=== PATIENT | female | born 1975 | race Caucasian/White ===

== ENCOUNTER 2017-06-12 22:22 | Emergency (ER) | payer MEDICAID, OTHER ==
[~2017-06-12] VITALS: Ht 167.6 cm; Wt 109.0 kg
[2017-06-12 22:36] VITALS: Ht 167.6 cm; Wt 109.0 kg
--- NOTE | 2017-06-13 00:43 | ERD ---
ER Documentation Chief Complaint Date/Time DATE: 06/13/17 TIME: 00:43 Chief Complaint pain with urination today HPI This 42-year-old female presents to emergency department with complaint of dysuria and hematuria x 1 day denies any vaginal discharge, reports low bladder pain and back pain. Patient denies any injury, nausea vomiting fever chills. ROS All systems reviewed and are negative except as per history of present illness. Medications Home Meds Active Scripts Phenazopyridine Hcl* (Pyridium*) 200 Mg Tab, 200 MG PO TID Y for URINARY PAIN, # 6 TAB Prov:FARIHA,JONATAN 06/13/17 Nitrofurantoin Monohyd Macrocr* (Macrobid*) 100 Mg Capsr, 100 MG PO BID for 7 Days, CAP Prov:FARIHA,JONATAN 06/13/17 Allergies Allergies: Coded Allergies: No Known Allergy (Unverified , 06/12/17) PMhx/Soc History of Surgery: No Anesthesia Reaction: No Hx Neurological Disorder: No Hx Respiratory Disorders: Yes (asthma) Hx Cardiac Disorders: No Hx Psychiatric Problems: No Hx Miscellaneous Medical Probl: No Hx Alcohol Use: No Hx Substance Use: No Hx Tobacco Use: No Smoking Status: Never smoker Physical Exam Vitals Vital Signs Date Time Temp Pulse Resp B/P Pulse Ox O2 Delivery O2 Flow Rate FiO2 06/13/17 02:07 72 20 117/68 98 Room Air 06/12/17 23:06 89 20 142/89 100 Room Air 06/12/17 22:36 98.1 87 20 146/73 98 Physical Exam Const: Well-nourished well-appearing well-hydrated no acute distress Head: Eyes: ENT: Neck: Resp: Cardio: Abd: Soft, non tender, non distended. No CVA tenderness Skin: Back: Ext: Neur: Awake and alert Psych: Normal Mood and Affect Results 24 hrs Laboratory Tests Test 06/13/17 01:30 Bedside Urine pH (LAB) 5.0 Bedside Urine Protein (LAB) 2+ Bedside Urine Glucose (UA) Negative Bedside Urine Ketones (LAB) Negative Bedside Urine Blood 3+ Bedside Urine Nitrite (LAB) Negative Bedside Urine Leukocyte Esterase (L 2+ This is positive for leukocytosis, microscopic hematuria Procedures/MDM This 42-year-old female presents to emergency department with a 1 day history of dysuria. Patient reports hematuria, and back pain, denies any vaginal discharge, nausea vomiting fever chills. Urinalysis positive for evidence of infection with leukocytosis and microscopic hematuria, plan to discharge patient home with Macrobid 100 mg 1 tab p.o. twice daily 7 days, Pyridium 200 mg 1 tab p.o. every 8 hours 2 days as fluids, increase rest, follow-up with primary care physician if symptoms fail to improve as anticipated. Patient is stable with no new complaints during ER course, clinically there is no current evidence to suggest abdomen, urosepsis, pyelonephritis or any other emergent condition appearing to require further evaluation or hospitalization. I feel the patient is stable for discharge at this time. I have discussed results, examination findings, the treatment plan with the patient and family present prior to discharge. Indications for emergent reevaluation, side effects of medication were also discussed. All questions were answered. Patient verbalizes understanding and agrees with plan of care. Departure Diagnosis: Primary Impression: UTI (urinary tract infection) Urinary tract infection type: site unspecified Hematuria presence: with hematuria Qualified Code: N39.0 - Urinary tract infection with hematuria, site unspecified Condition: Good Patient Instructions: Understanding Urinary Tract Infections (UTIs) [facility] Additional Instructions: Thank you for for coming to [facility] for your care today. Please ask your nurse or provider if you have questions about your care today and do not leave until all your questions have been answered. Please use any medications given as directed and follow-up with your doctor (or the doctor you were referred to) in the next 2-3 days. If you do not have a primary care doctor you may follow up at the community [facility] [place] (listed below). You may also use motrin and tylenol as needed for fever and/or pain unless instructed otherwise by your provider or nurse. Indications for more urgent follow-up have been discussed, but you may return to the Emergency Department at ANY time for any worrisome or worsening symptoms. If you have abdominal pain, please know that no test or exam you received is perfect and you should follow up within 8 hours for continued pain. If you had any imaging studies today, such as an X-Ray or CT Scan, these studies will be reviewed later by a radiologist. You will be called if there are important findings that were not identified today, so make sure the contact information you provided at registration is correct. If you received any narcotic pain control medicine today, such as Vicodin, Morphine or Dilaudid, your coordination and judgment may be affected for a number of hours. Please do not drive or operate heavy machinery, and you may want someone to assist you at home. If you were given a prescription for narcotic medication, be aware that it is very addictive- use sparingly and only if necessary. JONATAN FRIED Jun 13, 2017 00:43
[2017-06-13 01:23] LABS: URINE BLOOD (Dip) POC 3+ (NEGATIVE)
[2017-06-13] MEDS ORDERED: NITR-58 PO (01:36)
[2017-06-13] MEDS ORDERED: PHEN-538 PO (01:36)
[2017-06-13 02:07] VITALS: BP 117/68; PULSE 72; RESP 20
== END 2017-06-13 02:08 | disposition home or self-care (01) ==
LOC: FTE 22:22
DX: N39.0 Urinary tract infection, site not specified (principal); J45.909 Unspecified asthma, uncomplicated
CPT/HCPCS: 81003; Z7502; 99283